=== PATIENT | female | born 1985 | race Caucasian/White ===

== ENCOUNTER 2016-08-29 16:31 | Emergency (ER) | payer OTHER ==
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
[~2016-08-29 16:31] MED LIST: ALBUTEROL17 GM INH; BACTRIM DS TABL1 TA2 PO; BENZONATATE PO; DOXYCYCLINE150 MG PO; FAMOTIDINE PO; NO MEDICATIONS; PHENERGAN12.5 MG PO; POLYTRIM EYE DR10 ML OP; PRENATAL VITAMI1 TA5 PO; ROBITUSSIN A-C S5 ML PO; TRAMADOL HCL50 M1; VICODIN 5/1 TAB 5/50 PO; VOLTAREN75 MG PO; ZOFRAN ODT4 MG PO; ZOLPIDEM TARTRAT5 M1 DOB
== END 2016-08-29 18:21 | disposition home or self-care (01) ==
LOC: CFTX 16:31 → CED 16:31 → CFTX 17:08
DX: S16.1XXA Strain of muscle, fascia and tendon at neck level, initial encounter (principal); S50.01XA Contusion of right elbow, initial encounter; F17.210 Nicotine dependence, cigarettes, uncomplicated; V43.62XA Car passenger injured in collision with other type car in traffic accident, initial encounter
CPT/HCPCS: 72040; 73080; 99284

== ENCOUNTER 2016-09-09 03:51 | Emergency (ER) | payer OTHER ==
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
[2016-09-09] MEDS ORDERED: ALBUTEROL17 GM (04:01)
== END 2016-09-09 05:35 | disposition home or self-care (01) ==
LOC: SED 03:51
DX: J45.901 Unspecified asthma with (acute) exacerbation (principal); F17.200 Nicotine dependence, unspecified, uncomplicated
CPT/HCPCS: 71020; 94640; 99285

== ENCOUNTER 2016-09-25 13:20 | Emergency (ER) | payer OTHER ==
--- NOTE | ~2016-09-25 | CR281 ---
[facility] A Service of [facility] & [facility] RADIOLOGY TEXT RESULTS PATIENT: CEE HERNÁNDEZ LOCATION: SED : 89 UNIT #: [id number] AGE: [address]: Amy Neal MD SEX: F ORDER DR: [id number] [place] [id number] E MR#: [id number] Acc #: [id number] NAME: CEE HERNÁNDEZ. : 1985 SEX: F STUDY DATE/TIME: 09/25/2016 14:25 UNIT: SED ROOM: STUDY DESCRIPTION: CR Wrist Min 3 View Lt Attending Physician: Amy Neal M.D. Ordering Physician: Amy Neal M.D. Primary Care Physician: No Primary Care Physician MEDICAL IMAGING REPORT This report is preliminary unless electronic signature is present. EXAM Three-views, left wrist. INDICATIONS Lateral wrist pain after the patient tried to get up off the floor yesterday, and heard a pop. FINDINGS Wrist evaluation in multiple projections shows normal mineralization of the bony structures about the wrist and satisfactory articular relationship of the radius and ulna to the proximal carpal row and of the distal carpal segments to the metacarpal bases. There is no indication of fracture or dislocation, and no soft tissue radiopaque foreign body is present. No congenital defects are apparent. IMPRESSION Negative/normal 3 views wrist. Dictated by... Ellen Younger M.D. THIS IS AN ELECTRONICALLY VERIFIED REPORT Ellen Younger M.D. at 09/27/2016 5:15 PM AFF/jt TD: 09/25/2016 21:14 JOB #: [id number] MEDICAL IMAGING REPORT Page 1 of 1
[~2016-09-25 13:20] MED LIST changes: +ALBUTEROL17 GM
== END 2016-09-25 16:02 | disposition home or self-care (01) ==
LOC: SED 13:20
DX: J45.901 Unspecified asthma with (acute) exacerbation (principal); M25.532 Pain in left wrist; F17.200 Nicotine dependence, unspecified, uncomplicated
CPT/HCPCS: 29260; 73110; 94640; 99284

== ENCOUNTER 2016-11-27 15:31 | Emergency (ER) | payer OTHER | END 2016-11-27 17:30 | disposition left against medical advice (07) | LOC: SED 15:31 | DX: Z53.21 Procedure and treatment not carried out due to patient leaving prior to being seen by health care provider (principal) ==